=== PATIENT | male | born 1955 | race African-American/Black ===

== ENCOUNTER 2025-06-03 15:15 | Outpatient (CLI) | payer MEDICARE ==
--- NOTE | 2025-06-03 17:01 | RADIOLOGY REPORT ---
PROCEDURE: MR MRI LUMBAR SPINE INDICATION: UNILATERAL PRIMARY OSTEOARTHRITIS,LEFT HIP;PAIN IN LEFT HIP Exam Date: 06/03/2025 03:42 PM COMPARISON: None TECHNIQUE: MRI lumbar spine without intravenous contrast. FINDINGS: No fractures are identified about the lumbar spine. The conus terminates at L1. There are sacroiliac degenerative changes, greater on the left. L1-L2: There is disc desiccation with slight loss of disc height. There are Schmorl's nodes and Modic type 2 changes in the adjacent endplates. There is a circumferential disc bulge with endplate hypertrophy. There is bilateral facet and ligamentum flavum hypertrophy. No significant spinal canal stenosis. There is mild right and moderate left neural foraminal stenosis. L2-L3: There is a mild circumferential disc bulge with endplate hypertrophy. There is bilateral facet and ligamentum flavum hypertrophy. There is mild prominence of the posterior epidural fat. No significant spinal canal stenosis. There is mild bilateral neural foraminal stenosis. L3-L4: There is a minimal circumferential disc bulge. There is bilateral facet and ligamentum flavum hypertrophy. There is mild prominence of the posterior epidural fat. No significant spinal canal stenosis or neural foraminal stenosis bilaterally. L4-L5: There is 3 mm anterolisthesis L4 on L5 without evidence of spondylolysis. There is mild loss of disc height. There is a mild circumferential disc bulge with endplate hypertrophy. There are mild Modic type 2 changes in the adjacent endplates. There is mild prominence of the posterior epidural fat. The AP dimension of the spinal canal measures 5 mm. There is moderate right and mild left neural foraminal stenosis. There is partial effacement of the lateral recesses. L5-S1: There is 4 mm retrolisthesis L5 on S1. There is disc desiccation with loss of disc height. Probable vacuum phenomenon in the disc. There is a circumferential disc bulge with endplate hypertrophy, most prominent in the right foraminal and lateral regions. There are mild Modic type 2 changes in the adjacent endplates. There is bilateral facet hypertrophy. No significant spinal canal stenosis. No significant spinal canal stenosis, although there is partial effacement of the right lateral recess. There is moderate to severe right and mild left neural foraminal stenosis. IMPRESSION: 1. No fracture of the lumbar spine. 2. Degenerative disc disease and facet arthropathy with significant neural foraminal stenosis at L4-L5 and L5-S1 on the right. Additionally, there is partial effacement of the lateral recesses bilaterally at L4-L5 and on the right at L5-S1. These findings May correspond to lower extremity radicular symptoms in the right L4, bilateral L5, and right S1 nerve root distributions. 3. Moderate spinal canal stenosis at L4-L5 due to a combination of discopathy, facet arthropathy, and epidural lipomatosis.
== END 2025-06-03 23:59 | disposition home or self-care (01) ==
LOC: MRI02 15:15
PROVIDERS: ATTEND Family Medicine Sports Medicine
DX: M51.17 Intervertebral disc disorders with radiculopathy, lumbosacral region (principal); M25.552 Pain in left hip; M77.9 Enthesopathy, unspecified; M16.12 Unilateral primary osteoarthritis, left hip; M47.27 Other spondylosis with radiculopathy, lumbosacral region; M48.07 Spinal stenosis, lumbosacral region
CPT/HCPCS: 72148